=== PATIENT | female | born 1955 | race Caucasian/White ===

== ENCOUNTER → 2017-01-08 | Outpatient (CLI) | payer OTHER ==
[2017-01-08 11:58] LABS: CHCM 33.7; HCT 42.1 % (34.0-46.0); HDW 2.47; HGB 13.7 gm/dL (11.4-16.0); MCHC 32.5 g/dL (31.0-37.0); MCV 92.3 fL (80.0-100.0); Mean Platelet Volume 8.3; RBC 4.56 m/uL (3.80-5.40); RDW 12.6 % (11.5-15.5); WBC 5.3 k/uL (3.8-10.6)
[2017-01-08 12:09] LABS: ALT 53 U/L (9-52); AST 32 U/L (14-36); Alkaline Phosphatase 59 U/L (38-126); Anion Gap 15 mmol/L; Blood Urea Nitrogen 16 mg/dL (7-17); Calcium 10.2 mg/dL (8.4-10.2); Carbon Dioxide 21 mmol/L (22-30); Chloride 104 mmol/L (98-107); Glucose 97 mg/dL (74-99); Non-African American GFR(MDRD) >60 (>60 ml/min/1.73 sqM); Potassium 4.4 mmol/L (3.5-5.1); Sodium 140 mmol/L (137-145); Total Bilirubin 0.5 mg/dL (0.2-1.3); Total Protein 7.8 g/dL (6.3-8.2)
== END | disposition home or self-care (01) ==
LOC: LABWHC1 10:53
PROVIDERS: ATTEND Physician Assistant Medical
DX: C55 Malignant neoplasm of uterus, part unspecified (principal); I10 Essential (primary) hypertension; M54.5 Low back pain
CPT/HCPCS: 36415; 80053; 85027; 86152; 86153